=== PATIENT | female | born 1980 | race African-American/Black ===

== ENCOUNTER 2016-09-27 08:29 | Emergency (ER) | payer MEDICAID ==
[2016-09-27] MEDS ORDERED: IBUPROFEN 800 MG TABLET PO ONE (08:55)
--- NOTE | 2016-09-27 08:55 | ER Document Report ---
HPI - HPI Patient complains to provider of: ankle pain Pain Level: 4 Context: Patient is 36-year-old female presents emergency Department complaining of right ankle pain on the posterior aspect. Patient states that she was getting groceries out of her car yesterday when she twisted and felt pain in her ankle. She denies any previous injury or surgery on this ankle. She's been able to walk but with pain. She is able to drive here. She states it's worse with flexion and extension. Able to bear weight. Denies pain on the lateral medial aspect of the ankle. Took Motrin and Tylenol for pain with minimal relief. She has not done any ice or elevation. Denies any past medical, past surgical history. Goes to [facility] for primary care - REPRODUCTIVE Reproductive: DENIES: : - DERM Skin Color: Normal Past Medical History - Social History Smoking Status: Current Every Day Smoker Chew tobacco use (# tins/day): No Frequency of alcohol use: None Drug Abuse: None Family History: Reviewed & Not Pertinent Patient has suicidal ideation: No Patient has homicidal ideation: No - Past Medical History Cardiac Medical History: Denies: Hx Heart Attack, Hx Hypertension Pulmonary Medical History: Reports: Hx Asthma Denies: Hx Bronchitis, Hx COPD, Hx Pneumonia Neurological Medical History: Denies: Hx Seizures Renal/ Medical History: Denies: Hx Peritoneal Dialysis Musculoskeltal Medical History: Denies Hx Arthritis Psychiatric Medical History: Reports: Hx Anxiety, Hx Bipolar Disorder, Hx Depression Past Surgical History: Reports: Hx Section - x5, Hx Gynecologic Surgery - Bilateral salpingectomy, Hx Hysterectomy, Hx Tubal Ligation - Immunizations Immunizations up to date: No Hx Diphtheria, Pertussis, Tetanus Vaccination: Yes Vertical Provider Document - CONSTITUTIONAL Agree With Documented VS: Yes Exam Limitations: No Limitations General Appearance: WD/WN, No Apparent Distress - INFECTION CONTROL TRAVEL OUTSIDE OF THE [place] IN LAST 30 DAYS: No - RESPIRATORY Respiratory: Breath Sounds Normal, No Respiratory Distress, Chest Non-Tender. negative: Rales, Rhonchi, Wheezing O2 Sat by Pulse Oximetry: 100 - CARDIOVASCULAR Cardiovascular: Regular Rate, Regular Rhythm, No Murmur Pulses: Normal: Posterior tibial, Dorsalis pedis - MUSCULOSKELETAL/EXTREMETIES Musculoskeletal/Extremeties: MAEW, FROM, Tender - Over the insertion point of the Achilles tendon. No evidence of Achilles tendon rupture. No evidence of calf tenderness. Negative Homans sign. Patient able to bear weight. Gait normal, No Edema - NEURO Level of Consciousness: Awake, Alert, Appropriate - DERM Integumentary: Warm, Dry, No Rash Course - Re-evaluation Re-evalutation: 09/27/16 10:00 patient is a 36 year old with ankle strain, able to bear weight and ambulate. no evidence of fracture on XR, d/c home with carrillo wrap and crutches and f/u with PCP PRN - Vital Signs Vital signs: Temp Pulse Resp BP Pulse Ox 98.7 F 99 18 127/85 H 100 09/27/16 08:33 09/27/16 08:33 09/27/16 08:33 09/27/16 08:33 09/27/16 08:33 - Diagnostic Test Radiology reviewed: Image reviewed, Reports reviewed Discharge - Discharge Clinical Impression: Ankle pain Condition: Good Disposition: HOME, SELF-CARE Instructions: Carrillo Wrap ([facility]), Ice & Elevation ([facility]), Sprained Ankle ([facility]), Use of Crutches ([facility]) Additional Instructions: If your symptoms persist, follow up with your primary care physician Prescriptions: Ibuprofen [Motrin 800 mg Tablet] 800 mg PO Q8H PRN #30 tab PRN Reason:
[2016-09-27] MEDS ORDERED: TRAMADOL HCL 50 MG TABLET PO ONE (09:34)
[2016-09-27 10:17] VITALS: BP 118/70
== END 2016-09-27 10:16 | disposition home or self-care (01) ==
LOC: ER 08:29
DX: M25.571 Pain in right ankle and joints of right foot (principal); X50.1XXA Overexertion from prolonged static or awkward postures, initial encounter; Y93.89 Activity, other specified; J45.909 Unspecified asthma, uncomplicated; F17.200 Nicotine dependence, unspecified, uncomplicated
CPT/HCPCS: 99283

== ENCOUNTER 2017-04-04 10:24 | Emergency (ER) | payer MEDICAID ==
[2017-04-04 10:29] VITALS: BP 144/80
--- NOTE | 2017-04-04 10:41 | ER Document Report ---
HPI - HPI Pain Level: 5 Notes: Patient is a 36-year-old female who presents the ED complaining of a possible abscess to her vaginal area 2 days. She has not noticed any purulent discharge , but has noticed swelling and pain. She has not noticed any other lesions, ulcerations. Patient states that she does have a history of getting abscesses in other areas, but has not had one in this area. Patient denies any IV drug use. She is allergic to Cipro. Patient denies any other significant past medical history. Denies any headache, fever, URI, sore throat, chest pain, palpitations, syncope, cough, shortness of breath, wheeze, dyspnea, abdominal pain, nausea/vomiting/diarrhea, dysuria, hematuria, vaginal discharge/odor/ bleeding. No h/o MRSA. - ROS Notes: REVIEW OF SYSTEMS: CONSTITUTIONAL : Denies fever, chills, or sweats. Denies recent illness. EENT: Denies eye, ear, throat, or mouth pain or symptoms. Denies nasal or sinus congestion or discharge. Denies throat, tongue, or mouth swelling or difficulty swallowing. CARDIOVASCULAR: Denies chest pain. Denies palpitations or racing or irregular heart beat. RESPIRATORY: Denies cough, cold, or chest congestion. Denies shortness of breath, difficulty breathing, or wheezing. GASTROINTESTINAL: Denies abdominal pain or distention. Denies nausea, vomiting , or diarrhea. Denies blood in vomitus, stools, or per rectum. Denies black, tarry stools. Denies constipation. GENITOURINARY: Denies difficulty urinating, painful urination, burning, frequency, blood in urine, or discharge. FEMALE GENITOURINARY: Denies vaginal bleeding, heavy or abnormal periods, irregular periods. Denies vaginal discharge or odor. MUSCULOSKELETAL: Denies back or neck pain or stiffness. Denies joint pain or swelling. SKIN: see hpi HEMATOLOGIC : Denies easy bruising or bleeding. LYMPHATIC: Denies swollen, enlarged glands. NEUROLOGICAL: Denies confusion or altered mental status. Denies passing out or loss of consciousness. Denies dizziness or lightheadedness. Denies headache. Denies weakness or paralysis or loss of use of either side. Denies problems with gait or speech. Denies sensory loss, numbness, or tingling. ALL OTHER SYSTEMS REVIEWED AND NEGATIVE. Dictation was performed using Dragon voice recognition software - REPRODUCTIVE Reproductive: DENIES: : - DERM Skin Color: Normal Past Medical History - Social History Smoking Status: Unknown if Ever Smoked Family History: Reviewed & Not Pertinent Patient has suicidal ideation: No Patient has homicidal ideation: No - Past Medical History Cardiac Medical History: Denies: Hx Heart Attack, Hx Hypertension Pulmonary Medical History: Reports: Hx Asthma Denies: Hx Bronchitis, Hx COPD, Hx Pneumonia Neurological Medical History: Denies: Hx Seizures Renal/ Medical History: Denies: Hx Peritoneal Dialysis Musculoskeltal Medical History: Denies Hx Arthritis Psychiatric Medical History: Reports: Hx Anxiety, Hx Bipolar Disorder, Hx Depression Past Surgical History: Reports: Hx Section - x5, Hx Gynecologic Surgery - Bilateral salpingectomy, Hx Hysterectomy, Hx Tubal Ligation - Immunizations Immunizations up to date: No Hx Diphtheria, Pertussis, Tetanus Vaccination: Yes Vertical Provider Document - CONSTITUTIONAL Agree With Documented VS: Yes Notes: PHYSICAL EXAMINATION: GENERAL: Well-appearing, well-nourished and in no acute distress. LUNGS: Breath sounds clear to auscultation bilaterally and equal. No wheezes rales or rhonchi. HEART: Regular rate and rhythm without murmurs, rubs, gallops. ABDOMEN: Soft, nontender, nondistended abdomen. No guarding, no rebound. No masses appreciated. Normal bowel sounds present. No CVA tenderness bilaterally. : very small 0.4cm cellulitic area w/o abscess or purulent discharge. No streaks. No induration. Musculoskeletal: FROM to passive/active. Strength 5+/5. Extremities: No cyanosis, clubbing, or edema b/l. Peripheral pulses 2+. Capillary refill less than 3 seconds. NEUROLOGICAL: Cranial nerves grossly intact. Normal speech, normal gait. Normal sensory, motor exams PSYCH: Normal mood, normal affect. SKIN: see exam. Warm, Dry, normal turgor, no rashes or lesions noted. - INFECTION CONTROL TRAVEL OUTSIDE OF THE [place] IN LAST 30 DAYS: No - RESPIRATORY O2 Sat by Pulse Oximetry: 99 Course - Re-evaluation Re-evalutation: 04/04/17 10:56 Patient is an afebrile, well-hydrated, 36-year-old female who presents the ED with a small cellulitic, possible early abscess area to the left vulva. No evidence for STD or herpes based on PE today. Vitals are stable. No suspicion for any other systemic emergent condition at this time. Patient aware that condition can change from initial presentation and to monitor symptoms closely and seek medical attention with any acute changes. I will send her with a prescription for doxycycline to take as directed. Conservative measures for symptoms otherwise. Recheck with your PCM in 3-5 days. Return to the ED with any worsening/concerning symptoms otherwise as reviewed in discharge. Patient is in agreement. - Vital Signs Vital signs: Temp Pulse Resp BP Pulse Ox 98.7 F 119 H 20 144/80 H 99 04/04/17 10:27 04/04/17 10:27 04/04/17 10:27 04/04/17 10:27 04/04/17 10:27 Discharge - Discharge Clinical Impression: Cellulitis Qualifiers: Site of cellulitis: other site Qualified Code(s): L03.818 - Cellulitis of other sites Condition: Stable Disposition: HOME, SELF-CARE Instructions: Cellulitis ([facility]), Epsom Salt Soaks ([facility]), Doxycycline ([facility]) Additional Instructions: Keep the skin clean Wash with soap and water Epson salt soaks and warm compresses may help Tylenol/ibuprofen if needed Take antibiotics as directed and monitor for any worsening symptoms Recheck with your PCM in 3-5 days Return to the ED with any worsening symptoms and/or development of fever, headache, chest pain, palpitations, syncope, shortness of breath, trouble breathing, abdominal pain, n/v/d, blood in stool/urine, purulent discharge, abscess, red streaks, or other worsening symptoms that are concerning to you. Prescriptions: Doxycycline Hyclate 100 mg PO BID #20 capsule Referrals: [facility] [Provider Group] - Follow up as needed [facility] [Provider Group] - Follow up as needed
== END 2017-04-04 11:02 | disposition home or self-care (01) ==
LOC: ER 10:24
DX: N76.2 Acute vulvitis (principal); J45.909 Unspecified asthma, uncomplicated; Z88.1 Allergy status to other antibiotic agents
CPT/HCPCS: 99282

== ENCOUNTER 2017-07-05 12:15 | Emergency (ER) | payer MEDICAID ==
--- NOTE | 2017-07-05 12:31 | ER Document Report ---
ED Medical Screen (RME) - General Chief Complaint: Sore Throat Stated Complaint: COUGH,SORE THROAT Time Seen by Provider: 07/05/17 12:29 Mode of Arrival: Ambulatory Information source: Patient TRAVEL OUTSIDE OF THE [place] IN LAST 30 DAYS: No - HPI Patient complains to provider of: cough; sore throat Onset: Other - pt. with 10 day h/o cough (non-productive) and sore throat. Denies fever - Related Data Allergies/Adverse Reactions: ciprofloxacin [From Cipro] Allergy (Verified 04/04/17 10:27) Feels "on fire" on the inside ciprofloxacin HCl [From Cipro] Allergy (Verified 04/04/17 10:27) Past Medical History - Past Medical History Cardiac Medical History: Denies: Hx Heart Attack, Hx Hypertension Pulmonary Medical History: Reports: Hx Asthma Denies: Hx Bronchitis, Hx COPD, Hx Pneumonia Neurological Medical History: Denies: Hx Seizures Renal/ Medical History: Denies: Hx Peritoneal Dialysis Musculoskeltal Medical History: Denies Hx Arthritis Psychiatric Medical History: Reports: Hx Anxiety, Hx Bipolar Disorder, Hx Depression Past Surgical History: Reports: Hx Section - x5, Hx Gynecologic Surgery - Bilateral salpingectomy, Hx Hysterectomy, Hx Tubal Ligation - Immunizations Immunizations up to date: No Hx Diphtheria, Pertussis, Tetanus Vaccination: Yes Physical Exam - Vital signs Vitals: Temp Pulse Resp BP Pulse Ox 99.3 F 102 H 18 121/60 99 07/05/17 12:26 07/05/17 12:26 07/05/17 12:26 07/05/17 12:26 07/05/17 12:26 Course - Vital Signs Vital signs: Temp Pulse Resp BP Pulse Ox 99.3 F 102 H 18 121/60 99 07/05/17 12:26 07/05/17 12:26 07/05/17 12:26 07/05/17 12:26 07/05/17 12:26
--- NOTE | 2017-07-05 13:13 | RADIOLOGY REPORT (SQ) ---
EXAM DESCRIPTION: CHEST PA/LAT COMPLETED DATE/TIME: 07/05/2017 12:46 pm REASON FOR STUDY: cough COMPARISON: None. EXAM PARAMETERS: NUMBER OF VIEWS: two views TECHNIQUE: Digital Frontal and Lateral radiographic views of the chest acquired. RADIATION DOSE: NA LIMITATIONS: none FINDINGS: LUNGS AND PLEURA: No opacities, masses or pneumothorax. No pleural effusion. MEDIASTINUM AND HILAR STRUCTURES: No masses or contour abnormalities. HEART AND VASCULAR STRUCTURES: Heart normal size. No evidence for failure. BONES: No acute findings. HARDWARE: None in the chest. OTHER: No other significant finding. IMPRESSION: NO SIGNIFICANT RADIOGRAPHIC FINDING IN THE CHEST. TECHNICAL DOCUMENTATION: JOB ID: [id number] [employer]- All Rights Reserved
[2017-07-05 13:33] VITALS: BP 128/62
== END 2017-07-05 13:30 | disposition home or self-care (01) ==
LOC: ER 12:15
DX: J40 Bronchitis, not specified as acute or chronic (principal); J06.9 Acute upper respiratory infection, unspecified; J02.9 Acute pharyngitis, unspecified; R05 Cough; Z88.1 Allergy status to other antibiotic agents
CPT/HCPCS: 71046; 87070; 87880; 99283

== ENCOUNTER → 2017-09-01 | Outpatient (CLI) | payer MEDICAID ==
--- NOTE | 2017-09-01 17:41 | RADIOLOGY REPORT (SQ) ---
EXAM DESCRIPTION: RIBS LEFT W/PA CHEST COMPLETED DATE/TIME: 09/01/2017 5:30 pm REASON FOR STUDY: PLEURODYNIA R07.81 PLEURODYNIA COMPARISON: 07/05/2017. TECHNIQUE: Frontal view of the chest and additional views of the left ribs acquired. NUMBER OF VIEWS: Five view. LIMITATIONS: None. FINDINGS: FRONTAL CXR: No pneumothorax. No pleural effusion. No atelectasis or infiltrates. RIBS: No displaced rib fractures. No lytic or blastic bony lesions. OTHER: No other significant finding. IMPRESSION: NO PNEUMOTHORAX. NO DISPLACED RIB FRACTURES. COMMENT: SITE OF TRAUMA/COMPLAINT MARKED/STAMP COMPLETED: YES. TECHNICAL DOCUMENTATION: JOB ID: [id number] [employer]- All Rights Reserved Reading location - IP/workstation name: [email or web address]
== END ==
LOC: OD 17:12
PROVIDERS: ATTEND Family Medicine
DX: R07.81 Pleurodynia (principal)

== ENCOUNTER 2017-11-17 09:23 | Emergency (ER) | payer MEDICAID ==
[2017-11-17] MEDS ORDERED: ACETAMINOPHEN 325 MG TABLET PO ONE (10:15)
--- NOTE | 2017-11-17 10:18 | ER Document Report ---
ED Medical Screen (RME) - General Chief Complaint: Leg Pain Stated Complaint: LEG PAIN Time Seen by Provider: 11/17/17 10:14 Notes: RAPID MEDICAL EVALUATION DISCLOSURE I have seen this patient as part of a Rapid Medical Evaluation and, if applicable, placed any initially appropriate orders. The patient will be seen and fully evaluated, including a full history and physical exam, by a provider ( in Main ED or Fast Track) when a room becomes available. 37-year-old female here with complaints of left calf pain and swelling ongoing for the past 3 days. The symptoms initially involved only the calf however the back of her left thigh is now involved as well. She has not tried anything for the symptoms. She does not have any chest pain shortness of breath. She has a family history of DVT. Last month, she did partake in a [address] to [place]. EXAM CTAB RRR TRAVEL OUTSIDE OF THE [place] IN LAST 30 DAYS: No - Related Data Allergies/Adverse Reactions: ciprofloxacin [From Cipro] Allergy (Verified 11/17/17 09:24) Feels "on fire" on the inside ciprofloxacin HCl [From Cipro] Allergy (Verified 11/17/17 09:24) Past Medical History - Social History Chew tobacco use (# tins/day): No Frequency of alcohol use: Occasional Drug Abuse: None - Past Medical History Cardiac Medical History: Denies: Hx Heart Attack, Hx Hypertension Pulmonary Medical History: Reports: Hx Asthma Denies: Hx Bronchitis, Hx COPD, Hx Pneumonia Neurological Medical History: Denies: Hx Seizures Renal/ Medical History: Denies: Hx Peritoneal Dialysis Musculoskeltal Medical History: Denies Hx Arthritis Psychiatric Medical History: Reports: Hx Anxiety, Hx Bipolar Disorder, Hx Depression Past Surgical History: Reports: Hx Section - x5, Hx Gynecologic Surgery - Bilateral salpingectomy, Hx Hysterectomy, Hx Tubal Ligation - Immunizations Immunizations up to date: No Hx Diphtheria, Pertussis, Tetanus Vaccination: Yes Physical Exam - Vital signs Vitals: Temp Pulse Resp BP Pulse Ox 99.2 F 94 18 139/83 H 99 11/17/17 09:27 11/17/17 09:27 11/17/17 09:27 11/17/17 09:27 11/17/17 09:27 Course - Vital Signs Vital signs: Temp Pulse Resp BP Pulse Ox 99.2 F 94 18 139/83 H 99 11/17/17 09:27 11/17/17 09:27 11/17/17 09:27 11/17/17 09:27 11/17/17 09:27 Doctor's Discharge - Discharge Referrals: LETTY LAWSON MD [Primary Care Provider] - Follow up as needed
[2017-11-17 11:09] LABS: HEMATOCRIT 23.3 % (36.0-47.0); MEAN CORPUSCULAR HEMOGLOBIN 19.3 pg (27.0-33.4); MEAN CORPUSCULAR HGB CONC 30.8 g/dL (32.0-36.0); PLATELET COUNT 254 10^3/uL (150-450); RED BLOOD COUNT 3.71 10^6/uL (3.72-5.28); RED CELL DISTRIBUTION WIDTH 22.8 % (11.5-14.0); WHITE BLOOD COUNT 9.4 10^3/uL (4.0-10.5)
[2017-11-17 11:15] LABS: HEMOGLOBIN 7.2 g/dL (12.0-15.5)
[2017-11-17 11:16] LABS: MEAN CORPUSCULAR VOLUME 63 fl (80-97)
--- NOTE | 2017-11-17 11:16 | ER Document Report ---
ED Extremity Problem, Lower - General Chief Complaint: Leg Pain Stated Complaint: LEG PAIN Time Seen by Provider: 11/17/17 10:14 Mode of Arrival: Ambulatory Information source: Patient Notes: Chief complaint: Left calf pain History of complain:( obtained from----patient) 37 years old female presents today with severe left calf pain for the last few days. No extending onto the back of thigh she says. She claims is very very sharp. Emphasizing the pain scale. Claims that she took Motrin without relief. No injuries. No difficulty in breathing. No other constitutional symptoms. No previous history of DVT Onset: Last few days sudden Duration: Last few days Severity: Severe Quality: Sharp Context: Unknown Exacerbating factor and relieving factors: Walking REVIEW OF SYSTEMS: CONSTITUTIONAL : Denies fever, chills, or sweats. Denies recent illness. EENT: Denies eye, ear, throat, or mouth pain or symptoms. Denies nasal or sinus congestion or discharge. Denies throat, tongue, or mouth swelling or difficulty swallowing. CARDIOVASCULAR: Denies chest pain. Denies palpitations or racing or irregular heart beat. Denies ankle edema. RESPIRATORY: Denies cough, cold, or chest congestion. Denies shortness of breath, difficulty breathing, or wheezing. GASTROINTESTINAL: Denies distention. Denies nausea, vomiting, or diarrhea. Denies blood in vomitus, stools, or per rectum. Denies black, tarry stools. Denies constipation. GENITOURINARY: Denies difficulty urinating, painful urination, burning, frequency, blood in urine, or discharge. FEMALE GENITOURINARY: Denies vaginal bleeding, heavy or abnormal periods, irregular periods. Denies vaginal discharge or odor. MUSCULOSKELETAL: Denies back or neck pain or stiffness. Denies joint pain or swelling. SKIN: Denies rash, lesions or sores. HEMATOLOGIC : Denies easy bruising or bleeding. LYMPHATIC: Denies swollen, enlarged glands. NEUROLOGICAL: Denies confusion or altered mental status. Denies passing out or loss of consciousness. Denies dizziness or lightheadedness. Denies headache. Denies weakness or paralysis or loss of use of either side. Denies problems with gait or speech. Denies sensory loss, numbness, or tingling. Denies seizures. PSYCHIATRIC: Denies anxiety or stress. Denies depression, suicidal ideation, or homicidal ideation. ALL OTHER SYSTEMS REVIEWED AND NEGATIVE. PHYSICAL EXAMINATION: GENERAL: Well-appearing, well-nourished and in no acute distress. HEAD: Atraumatic, normocephalic. EYES: Pupils equal round and reactive to light, extraocular movements intact, conjunctiva are normal. ENT: Nares patent, oropharynx clear without exudates. Moist mucous membranes. NECK: Normal range of motion, supple without lymphadenopathy LUNGS: Breath sounds clear to auscultation bilaterally and equal. No wheezes rales or rhonchi. HEART: Regular rate and rhythm without murmurs ABDOMEN: Soft, nontender, nondistended abdomen. No guarding, no rebound. No masses appreciated. Examination of genitals-deferred Musculoskeletal: Normal range of motion, no pitting or edema. No cyanosis. NEUROLOGICAL: Cranial nerves grossly intact. Normal speech, normal gait. Normal sensory, motor exams PSYCH: Normal mood, normal affect. SKIN: Warm, Dry, normal turgor, no rashes or lesions noted. Dictation was performed using [employer] voice recognition software TRAVEL OUTSIDE OF THE [place].S. IN LAST 30 DAYS: No - Related Data Allergies/Adverse Reactions: ciprofloxacin [From Cipro] Allergy (Verified 11/17/17 09:24) Feels "on fire" on the inside ciprofloxacin HCl [From Cipro] Allergy (Verified 11/17/17 09:24) Past Medical History - Social History Smoking Status: Current Every Day Smoker Chew tobacco use (# tins/day): No Frequency of alcohol use: Occasional Drug Abuse: None Family History: Reviewed & Not Pertinent Patient has suicidal ideation: No Patient has homicidal ideation: No - Past Medical History Cardiac Medical History: Denies: Hx Heart Attack, Hx Hypertension Pulmonary Medical History: Reports: Hx Asthma Denies: Hx Bronchitis, Hx COPD, Hx Pneumonia Neurological Medical History: Denies: Hx Seizures Renal/ Medical History: Denies: Hx Peritoneal Dialysis Musculoskeltal Medical History: Denies Hx Arthritis Psychiatric Medical History: Reports: Hx Anxiety, Hx Bipolar Disorder, Hx Depression Past Surgical History: Reports: Hx Section - x5, Hx Gynecologic Surgery - Bilateral salpingectomy, Hx Hysterectomy, Hx Tubal Ligation - Immunizations Immunizations up to date: No Hx Diphtheria, Pertussis, Tetanus Vaccination: Yes Review of Systems - Review of Systems Notes: Dictated Physical Exam - Vital signs Vitals: Temp Pulse Resp BP Pulse Ox 99.2 F 94 18 139/83 H 99 11/17/17 09:27 11/17/17 09:27 11/17/17 09:27 11/17/17 09:27 11/17/17 09:27 - Notes Notes: Dictated Course - Re-evaluation Re-evalutation: 11/17/17 12:58 Her low blood count was discussed with patient, patient states that she have a history of low blood count particularly during the time., She was asked to take iron tablets but not been taking it due to constipation. - Vital Signs Vital signs: Temp Pulse Resp BP Pulse Ox 99.2 F 94 18 139/83 H 99 11/17/17 09:27 11/17/17 09:27 11/17/17 09:27 11/17/17 09:27 11/17/17 09:27 - Laboratory Result Diagrams: 11/17/17 10:35 11/17/17 10:35 Laboratory results interpreted by me: 11/17/17 11/17/17 11/17/17 10:35 10:35 11:32 RBC 3.71 L Hgb 7.2 L Hct 23.3 L MCV 63 L MCH 19.3 L MCHC 30.8 L RDW 22.8 H Chloride 109 H Urine Blood MODERATE H - Diagnostic Test Radiology reviewed: Pending - Not officially reported leg venous Doppler study was negative for any DVT. Discharge - Discharge Clinical Impression: Cramps of left lower extremity, Chronic anemia Condition: Fair Disposition: HOME, SELF-CARE Instructions: Leg Cramps ([facility]) Prescriptions: Baclofen [Baclofen 10 mg Tablet] 10 mg PO TID #90 tab Tramadol HCl [Ultram] 50 mg PO TID #10 tablet Referrals: LETTY LAWSON MD [Primary Care Provider] - Follow up as needed
[2017-11-17 11:19] LABS: ALANINE AMINOTRANSFERASE 34 U/L (9-52); ALBUMIN 3.7 g/dL (3.5-5.0); ALKALINE PHOSPHATASE 77 U/L (38-126); ANION GAP 10 (5-19); ASPARTATE AMINO TRANSFERASE 32 U/L (14-36); BILIRUBIN,DIRECT 0.2 mg/dL (0.0-0.4); BILIRUBIN,TOTAL 0.2 mg/dL (0.2-1.3); BLOOD UREA NITROGEN 7 mg/dL (7-20); CARBON DIOXIDE 25 mmol/L (22-30); CHLORIDE 109 mmol/L (98-107); GLUCOSE 99 mg/dL (75-110); POTASSIUM 3.9 mmol/L (3.6-5.0); SODIUM 144.2 mmol/L (137-145); TOTAL PROTEIN 6.7 g/dL (6.3-8.2)
[2017-11-17 11:38] LABS: ABSOLUTE LYMPHOCYTES# (MANUAL) 1.3 10^3/uL (0.5-4.7); ABSOLUTE MONOCYTES # (MANUAL) 0.6 10^3/uL (0.1-1.4); ABSOLUTE NEUTROPHILS# (MANUAL) 7.2 10^3/uL (1.7-8.2); BASOPHILS % (MANUAL) 0 % (0-2); EOSINOPHILS % (MANUAL) 3 % (0-6); LYMPHOCYTES % (MANUAL) 13 % (13-45); MONOCYTES % (MANUAL) 6 % (3-13); SEGMENTED NEUTROPHILS % (MAN) 77 % (42-78); TOTAL CELLS COUNTED 100
[2017-11-17 11:39] LABS: ANISOCYTOSIS 2+; HYPOCHROMASIA 2+; OVALOCYTES 1+; PLATELET COMMENT ADEQUATE; POIKILOCYTOSIS 1+; POLYCHROMASIA SLIGHT; TEAR DROP CELLS 1+
[2017-11-17 12:30] LABS: APPEARANCE,URINE CLEAR; BILIRUBIN,URINE NEGATIVE (NEGATIVE); COLOR,URINE STRAW; GLUCOSE, URINE NEGATIVE (NEGATIVE); KETONES,URINE NEGATIVE (NEGATIVE); LEUKOCYTE ESTERASE,URINE NEGATIVE (NEGATIVE); NITRITE,URINE NEGATIVE (NEGATIVE); PROTEIN,URINE NEGATIVE (NEGATIVE); URINE SPECIFIC GRAVITY 1.004; UROBILINOGEN,URINE NEGATIVE mg/dL (<2.0)
[2017-11-17 12:45] LABS: URINE AMPHETAMINES SCREEN NEGATIVE; URINE BARBITURATES SCREEN NEGATIVE; URINE BENZODIAZEPINES SCREEN NEGATIVE; URINE COCAINE SCREEN NEGATIVE; URINE MARIJUANA (THC) SCREEN NEGATIVE; URINE METHADONE SCREEN NEGATIVE; URINE PHENCYCLIDINE SCREEN NEGATIVE
--- NOTE | 2017-11-17 13:36 | RADIOLOGY REPORT (SQ) ---
EXAM DESCRIPTION: VENOUS UNILATERAL LOWER COMPLETED DATE/TIME: 11/17/2017 1:10 pm REASON FOR STUDY: LLE swelling pain to calf and thigh; eval dvt COMPARISON: None. TECHNIQUE: Dynamic and static herrmann scale and color images acquired of the left leg venous system. Se lected spectral images acquired with additional compression and augmentation maneuvers. The contralat eral common femoral vein and saphenofemoral junction were also imaged. Images stored on PACS. LIMITATIONS: None. FINDINGS: LEFT COMMON FEMORAL: Normal phasicity, compression and augmentation. No visualized echogenic material on g ray scale. No defects on color images. FEMORAL: Normal compression and augmentation. No visualized echogenic material on herrmann scale. No defe cts on color images. POPLITEAL: Normal compression, augmentation. No visualized echogenic material on herrmann scale. No defec ts on color images. CALF VESSELS: Normal compression, augmentation. No visualized echogenic material on herrmann scale. No de fects on color images. GSV and SSV: Normal compression, augmentation. No visualized echogenic material on herrmann scale. No def ects on color images. ANY DEEP VENOUS INSUFFICIENCY: There is reflux on Valsalva in the upper left greater saphenous vein i n the thigh. ANY EVIDENCE OF POPLITEAL CYST: No. OTHER: No other significant finding. RIGHT COMMON FEMORAL VEIN AND SAPHENOFEMORAL JUNCTION: Normal phasicity, compression and augmentation. No visualized echogenic material on herrmann scale. No de fects on color images. IMPRESSION: NO EVIDENCE OF DVT OR SVT IN THE LEFT LEG. Venous reflux in the left greater saphenous vein TECHNICAL DOCUMENTATION: JOB ID: [id number] [employer]- All Rights Reserved Reading location - IP/workstation name: [email or web address]
[2017-11-17 14:32] VITALS: BP 120/80
[2017-11-17] MEDS ORDERED: ONDANSETRON HCL INJ/PF 4 MG/2 ML SDV IV PRN (18:19)
[2017-11-17] MEDS ORDERED: NORMAL SALINE 100 ML IV PRN (18:22)
[2017-11-17] MEDS ORDERED: KETOROLAC TROMETHAMINE INJ/PF 30 MG/1 ML SDV IV SCH (18:30)
[2017-11-18] MEDS ORDERED: PIPERACILLIN/TAZOBACTAM 3.375 GM VIAL IV SCH
[2017-11-18 14:09] LABS: PATH REVIEW PATHOLOGIST REVIEWED
== END 2017-11-17 14:33 | disposition home or self-care (01) ==
LOC: ER 09:23
DX: M79.605 Pain in left leg (principal); R25.2 Cramp and spasm; D64.9 Anemia, unspecified; F17.200 Nicotine dependence, unspecified, uncomplicated; Z90.710 Acquired absence of both cervix and uterus
CPT/HCPCS: 99284; 36415; 85025; 80053; 81001; 80307; 93971; J3490